=== PATIENT | male | born 1995 | race Caucasian/White ===

== ENCOUNTER 2018-09-16 13:14 | Emergency (ER) | payer BC, SELFPAY ==
[2018-09-16 13:15] VITALS: BP 139/78; PULSE 87; RESP 16; TEMP 36.6; O2SAT 100; BMI 23.1
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
--- NOTE | 2018-09-16 14:06 | DCINST.ED_ITS ---
ED Disposition - Plan for ED Patient: Disposition: Home or Assisted Living Instructions: ED Laceration Ext Sutr Stap Tape Referrals: [facility] Doctor,Out of [Primary Care Provider] - 7 Days for suture removal
[2018-09-16] MEDS: Diphth,Pertuss(Acell),Tet Vac 0.5 ML Vial IM (14:12)
== END 2018-09-16 15:40 | disposition home or self-care (01) ==
LOC: ED 14:22
PROVIDERS: Emergency Provider Emergency Medicine; Family Provider Family Medicine; PCP Family Medicine
DX: S51.812A Laceration without foreign body of left forearm, initial encounter (principal); W26.8XXA Contact with other sharp object(s), not elsewhere classified, initial encounter; Y93.9 Activity, unspecified; Y92.9 Unspecified place or not applicable
CPT/HCPCS: 12001; 90471; 90715; 99283

== ENCOUNTER 2024-12-25 20:00 | Inpatient (IN) | payer OTHER, SELFPAY ==
[2024-12-25 21:44] VITALS: BMI 24.5
[2024-12-25 22:00] VITALS: BP 122/70; PULSE 103; RESP 16; TEMP 37.2; O2SAT 97; BMI 25.2
[2024-12-25 22:39] VITALS: PULSE 103
[2024-12-25] MEDS: Senna/Docusate Sodium 1 Tablet PO (22:39)
[2024-12-25] MEDS: Polyethylene Glycol 3350 17 GM PACKET PO (22:40)
[2024-12-25 23:21] LABS: Mucous, Urine 0 SEEN /hpf (<or=2+)
[2024-12-25 23:32] LABS: Color, Urine Yellow (Yellow); Glucose, Dipstick Normal (Normal); Ketone-Dipstick Negative (Negative); Leukocyte Esterase-Dipstick Negative /ul (Negative); Nitrite-Dipstick Negative (Negative); Occult Blood-Urine 50 /ul (Negative); Protein-Dipstick 15 mg/dl (Negative); Specific Gravity, Urine 1.010 (1.002-1.030); Urine Bilirubin Dipstick Negative (Negative)
[2024-12-26 00:26] LABS: Red Blood Cells-Urine 10-25 SEEN /hpf (0-5); Squamous Epithelial Cells - UA 0-5 SEEN /hpf (0-5)
[2024-12-26 06:00] VITALS: BP 119/69; PULSE 104; RESP 16; TEMP 36.4; O2SAT 98
[2024-12-26 06:43] LABS: Hematocrit 29.9 % (40-54); Hemoglobin 9.8 g/dL (13.0-16.5); Immature Granulocytes Count 0.120 X10^3/uL (0.0-0.0); Mean Corp Hgb Conc 32.8 g/dL (32-36); Mean Corpuscular Volume 93.7 fL (80-94); Mean Platelet Vol. 8.4 fl (6.2-12.0); NRBC Flagged by Analyzer 0 % (0-5); Platelet Count 532 K/mm3 (150-450); RBC Distribution Width CV 13.6 % (11.6-14.6); RBC Distribution Width SD 46.5 fl (35.1-43.9); Red Blood Count 3.19 M/mm3 (4.6-6.2); White Blood Count 9.6 K/mm3 (4.4-11.0)
[2024-12-26 08:17] LABS: AST(SGOT) 54 U/L (<=37); Alanine Aminotransfer ALT/SGPT 73 U/L (<=46); Albumin, Serum 3.2 g/dL (3.5-5.0); Alkaline Phosphatase 82 U/L (40-129); Anion Gap 10 (5-15); BUN 14 mg/dL (4-19); BUN/Creat Ratio 18.6 RATIO (10-20); Calcium,Total 9.0 mg/dL (7.6-11.0); Carbon Dioxide 26.5 mmol/L (21.0-32.0); Chloride 103 mmol/L (98-108); Estimated Creatinine Clearance 146.00 ml/min (50-250); Globulin 3.2 g/dL (2.2-4.2); Glucose 93 mg/dL (70-99); Magnesium 2.5 mg/dL (1.5-2.2); Potassium 4.4 mmol/L (3.3-5.1)
[2024-12-26 08:34] VITALS: BP 103/60; BP 95/59; PULSE 133; PULSE 142
[2024-12-26] MEDS: Polyethylene Glycol 3350 17 GM PACKET PO (09:17)
[2024-12-26] MEDS: Senna/Docusate Sodium 1 Tablet PO (09:17)
[2024-12-26 10:00] VITALS: PULSE 133
--- NOTE | 2024-12-26 10:19 | HP.PCM_ITS ---
HPI - General General Date of Admission: 12/25/24 HPI Narrative DANICA GORDON, is a 29 M who presents [facility] Medical History no medical history Home Medications ?Medication ?Instructions ?Recorded ?Last Taken ?Type acetaminophen 325 mg tablet 325 mg PO Q6H Pain 5 12/25/24 17:25 History bacitracin zinc 500 unit-polymyxin 1 applic topical TI D Infection 12/25/24 12/25/24 12:30 History B 10,000 unit/gram topical ointment (Double Antibiotic (bacitrcn zn)) cyclobenzaprine 10 mg tablet 10 mg PO TID Muscle spasm s 12/25/24 12/25/24 21:20 History enoxaparin 40 mg/0.4 mL 40 mg subcut DAILY Anticoagu lant 12/25/24 Unknown History subcutaneous syringe gabapentin 300 mg capsule 300 mg PO TID pain 12/25/24 Unknown History ibuprofen 600 mg tablet (IBU) 600 mg PO Q6H Pain 12/25 Unknown History metoprolol tartrate 50 mg tablet 50 mg PO BID Heart ra te 12/25/24 12/25/24 12:30 History oxycodone 5 mg tablet 5 mg PO Q6H PRN pain 5 12/25/24 04:15 History polyethylene glycol 3350 17 17 g PO BID Constipation 0 12/25/24 12/25/24 08:15 History gram/dose oral powder (Purelax) sennosides 8.6 mg-docusate sodium 2 tab-cap PO DAILY C onstipation 12/25/24 Unknown History 50 mg tablet (Senna with Docusate Sodium) tamsulosin 0.4 mg capsule (Flomax) 0.4 mg PO QHS Urina ry retention 12/25/24 12/24/24 19:45 History Allergy/AdvReac Type Severity Reaction Status Date / Time No Known Allergies Allergy Verified 12/26/24 10:30 Family History no significant family his Surgical History no surgical history Social History Smoking Status: Never smoker Vital Signs Vital Signs Vital Signs: 12/25/24 22:00 12/25/24 22:00 12/25/24 22:39 Temperature 98.9 F Temperature Source Oral Pulse Rate 103 H 103 H 103 H Pulse Rate [Sitting (for 1 minute prior to obtaining)] Pulse Rate [Standing (for 1 minute prior to obtaining)] Respiratory Rate 16 16 Respiratory Effort Normal Non-Labored Respiratory Depth Normal Respiratory Pattern Normal Blood Pressure 122/70 H Blood Pressure [Sitting (for 1 minute prior to obtaining)] Blood Pressure [Standing (for 1 minute prior to obtaining)] Blood Pressure Mean 87 Blood Pressure Mean [Sitting (for 1 minute prior to obtaining)] Blood Pressure Mean [Standing (for 1 minute prior to obtaining)] Blood Pressure Source Monitor Blood Pressure Position Semi-Fowlers Blood Pressure Location Left Arm Pulse Ox 97 97 Oxygen Delivery Method Room Air Room Air 12/26/24 06:00 12/26/24 08:34 Temperature 97.6 F L Temperature Source Oral Pulse Rate 104 H Pulse Rate [Sitting (for 1 minute prior to obtaining)] 142 H Pulse Rate [Standing (for 1 minute prior to obtaining)] 133 H Respiratory Rate 16 Respiratory Effort Respiratory Depth Respiratory Pattern Blood Pressure 119/69 Blood Pressure [Sitting (for 1 minute prior to obtaining)] 103/60 Blood Pressure [Standing (for 1 minute prior to obtaining)] 95/59 L Blood Pressure Mean 85 Blood Pressure Mean [Sitting (for 1 minute prior to obtaining)] 74 Blood Pressure Mean [Standing (for 1 minute prior to obtaining)] 71 Blood Pressure Source Monitor Blood Pressure Position Semi-Fowlers Blood Pressure Location Left Arm Pulse Ox 98 Oxygen Delivery Method Room Air Weight Weight: 171 lb Body Mass Index (BMI) 25.2 Results Lab / Micro Data 12/26/24 06:16 12/26/24 06:16 Labs: Laboratory Results - last 24 hr 12/25/24 22:56: Urine Color Yellow, Urine Clarity Clear, Urine pH 7.0, Ur Specific [place] 1.010, Urine Protein 15 H, Urine Glucose (UA) Normal, Urine Ketones Negative, Urine Occult Blood 50 H, Urine Nitrite Negative, Urine Bilirubin Negative, Urine Urobilinogen Normal, Ur Leukocyte Esterase Negative, Urine RBC 10-25 SEEN, Urine WBC 0 SEEN, Ur Squamous Epith Cells 0-5 SEEN, Urine Bacteria 3+, Urine Mucus 0 SEEN 12/26/24 06:16: WBC 9.6, RBC 3.19 L, Hgb 9.8 L, Hct 29.9 L, MCV 93.7, MCH 30.7, MCHC 32.8, RDW Std Deviation 46.5 H, RDW Coeff of Dilcia 13.6, Plt Count 532 H, MPV 8.4, Immature Gran % (Auto) 1.200 H, Neut % (Auto) 67.1, Lymph % (Auto) 17.5 L, Ector % (Auto) 11.6 H, Eos % (Auto) 2.1, Baso % (Auto) 0.5, Absolute Neuts (auto) 6.5, Absolute Lymphs (auto) 1.68, Nucleated RBC % 0, Sodium 139, Potassium 4.4, Chloride 103, Carbon Dioxide 26.5, Anion Gap 10, BUN 14, Creatinine 0.76, Estim Creat Clear Calc 146.00, Est GFR (MDRD) Non-Af 126, BUN/Creatinine Ratio 18.6, Glucose 93, Calcium 9.0, Phosphorus 4.0, Magnesium 2.5 H, Total Bilirubin 0.68, AST 54 H, ALT 73 H, Alkaline Phosphatase 82, Total Protein 6.4, Albumin 3.2 L, Globulin 3.2, Albumin/Globulin Ratio 1.0 Assessment & Plan Assessment/Plan PLAN: Plan PLAN PT for gait stability OT for ADL's Analgesics as needed Bowel protocol Fall precautions Assess for Anxiety/Depression GI prophylaxis - [] DVT prophylaxis with [] Follow up with [] following DC from IP Rehab AM lab including CMP, CBC, Mag and Phos DC Gabapentin and Flexeril. Continue Motrin and Tylenol q8H Schedule Oxycodone 10 mg Q 8H and 5 mg Q4H PRN breakthrough pain 6-10 Discontinue Flomax DC metoprolol - he is orthostatic and HR went up to 133 with standing due to uncontrolled pain and dehydration. NS 1 liter bolus over an hour. He is increasing his fluid intake. Recheck a HH in the AM. Voiding trial .
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
[2024-12-26] MEDS: 0.9% Normal Saline (500mL Bag) 500 ML 999 ML IV (10:24)
[2024-12-26] MEDS: 0.9% Saline Lock 10 ML Syringe IV (10:28)
[2024-12-26 11:03] VITALS: BP 117/73; PULSE 99; RESP 18
[2024-12-26] MEDS: 0.9% Normal Saline (500mL Bag) 500 ML IV (11:15)
--- NOTE | 2024-12-26 11:37 | REHABEVAL_ITS ---
Admission Information Primary Diagnosis:: Debility secondary to SENIOR CARE/open left distal femur fracture Status Changes from Prescreening?: No changes Identified Actual Problem List:: Skin Intergrity, Pain, ALteration in Cmfrt, Bowel, Constipation, Mobility Impaired, Self Care Deficit, BP, Hypotension, Alteration/ Air Exchange, Fluid Change-Dehydration and Alteration-Leisure Activ. Potential Problem List:: DVT, Bleeding, Infection, UTI, Aspiration, Falls, Skin Integrity and Depression Risk of Complications DVT: LMWH and JUANITA Hose Bleeding: Monitor Lab Values, Nursing to Teach Precautions for anti-coagulation therapy., Wound, if applicable, to be assessed every shift. and Stroke patients assessed for lethargy or change in status. Infection: Clinical Staff to Monitor for S/S of infection: and S/S of infection include fever, redness, warmth, etc. Urinary Tract Infection: Monitor for frequency, burning, discomfort, or incontinence. and Nursing will obtain urine sample for urinalysis and C&S when ordered. Aspiration: Clinical staff will monitor for coughing, drooling, congestion., Speech will evaluate swallowing and dsyphasia. and Nursing will monitor patient swallowing during meals. Falls: Patient will be evaluated for Fall Precautions and Patient will be placed on Fall Precautions as indicated per protocol. Skin Breakdown: Nursing will assess skin daily using assessment tool. and Nursing will place on Skin Breakdown Precautions as indicated. Pain: Clinical staff will assess patient's pain level per protocol., Medications will be given, if needed, and the pain level reassessed. and Other methods: Massage, distraction, decrease stimulus, etc. used PRN. Plan of Care Patient requires physician specializing in physical medicine and rehab oversight to provide close medical supervision of rehab issues including: Pain Management, Sleep Problems, Bowel and Bladder, Medical and co-morbidity Management, DVT prophylaxis, Rehabilitation Leadership and Coordination of treatment team Patient needs Physical Therapy: For a minimum of 1 hour and At least 5 out of 7 days Patient needs Physical Therapy to improve:: Mobility, Strengthening, Transfers, Stretching, ROM, Endurance, Stairs, Gait and Balance Patient needs Occupational Therapy: For a minimum of 1 hour and At least 5 out of 7 days Patient needs Occupational Therapy to improve ADL's incl.: Eating, Grooming, Bathing, Dressing, Toileting, Toilet transfers, Community Reintegration, Higher functioning activities, Household tasks, Adaptive Equipment, Splinting and Other activities as determined Patient requires 24/7 Rehabilitation Nursing for: Pain Issues, Identifying and preventing risk factors, Monitoring and reporting current medical conditions, Assisting with ambulation, transfer, and all ADL's, Teaching patients about disease process and medications, Family teaching, Providing safe environment, Bowel and Bladder Issues, Skin integrity and Medication Management Patient needs Academic Support Director/ Case Management for: Discharge Planning, Arranging Home Equipment or Services and Family Interventions Patient needs Dietary and Nutrition Services for: Adequate Nutrition, Nutritional Supplements and Nutritional Education Goals Goals Patient will remain: free from falls Patient will perform eating at: MOD I level of assist. Patient will perform bed mobility at: MOD I level of assist. Patient will complete transfers from bed to chair at: MOD I level of assist. Patient will ambulate: - (50 feet with a wheeled walker while maintaining nonweightbearing on the left lower extremity on various surfaces at modified) Patient will complete upper body dressing at: MOD I level of assist. Patient will complete lower body dressing at: MOD I level of assist. (With adaptive equipment as needed for increased independence with self-care) Patient will complete toilet transfer at: MOD I level of assist. Patient will complete toileting at: MOD I level of assist. Patient will perform bathing at: MOD I level of assist. (Using adaptive equipment for lower body bathing as needed.) Patient will perform Tub/Shower transfer at: - (Supervision using DME as needed. ) Patient will complete grooming at: MOD I level of assist. Patient will complete home management skills at: MOD I level of assist. Patient will achieve: - (3 steps with a wheeled walker at standby assist to allow access to his home.) Patient will have pain level of: of 3 or less Patient's skin will: remain intact Patient will receive: adequate nutrition. Discharge Planning Pt Prognosis for Sig. Practical Improv. w/in Reasonable Time: Good Estimated Length of stay (days): 14 Anticipated D/C Destination: Home w/ family or friends Was Preadmission Assessment Accurate?: Yes
[2024-12-26] MEDS: Magnesium Citrate 300 ML PO (12:11)
[2024-12-26 18:00] VITALS: BP 122/75; PULSE 99; RESP 12; TEMP 36.9; O2SAT 97
--- NOTE | 2024-12-26 18:37 | NURSING ---
Per Dr. Andrea ABD applied to incision on knee, miguel clean dry and intact. x4 Bandaids applied to proximal and distal incisions, miguel clean dry and intact. Left lateral knee surgical dressing remains intact. Proximal lateral knee incision covered with a 2x2. SOL wrap to be worn during the day. JUANITA to right leg.
[2024-12-26] MEDS: Senna/Docusate Sodium 1 Tablet 2 TABLET PO (21:45)
[2024-12-26 22:00] VITALS: PULSE 106
[2024-12-27 05:58] VITALS: BP 130/77; PULSE 121; RESP 15; TEMP 36.6; O2SAT 100
[2024-12-27 06:00] VITALS: BMI 24.3
[2024-12-27 07:25] LABS: Hematocrit 28.2 % (40-54); Hemoglobin 9.3 g/dL (13.0-16.5)
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
[2024-12-27 09:45] VITALS: BP 118/67; BP 127/88; BP 134/89; PULSE 105; PULSE 121; PULSE 149
[2024-12-27 18:00] VITALS: BP 119/74; PULSE 111; RESP 16; TEMP 36.4; O2SAT 99
[2024-12-27 21:15] VITALS: PULSE 111; RESP 16
[2024-12-27] MEDS: 0.9% Saline Lock 10 ML Syringe IV (22:37)
[2024-12-28 06:00] VITALS: BP 127/78; PULSE 116; RESP 17; TEMP 37.4
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
--- NOTE | 2024-12-28 14:45 | NURSING ---
Mepilex changed by assistant shift supervisor to left lateral knee, OT notified this nurse that dressing had come loose again. Per verbal communication with Dr. Leung, okay to leave incision open to air.
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
[2024-12-28 18:00] VITALS: BP 128/79; PULSE 98; RESP 16; TEMP 37.2; O2SAT 98
[2024-12-28 22:00] VITALS: PULSE 98; RESP 16; O2SAT 98
[2024-12-28] MEDS: 0.9% Saline Lock 10 ML Syringe IV (22:14)
[2024-12-29 06:00] VITALS: BP 117/80; PULSE 94; RESP 16; TEMP 36.3; O2SAT 97
--- NOTE | 2024-12-29 08:56 | PCM.DC ---
Documented by User: KIRSTEN Sinclair 12/29/24 09:58 Discharge Instructions Diet Discharge Diet: No restrictions DC O2, CPAP, BIPAP needs Home O2 Discharge instructions: No Dressing / Incision Discharge Activity: May Not Drive and May Shower (no tub ) Weight Bearing Status: No weight bearing (Left Lower extremity ) Keep extremity elevated above heart level: Left Leg Dressing / Incision Call your doctor if your incision/area has: Continuous Slow Oozing, Sudden Increased Bleeding, Increased Pain/ Swelling, Increased Redness, Foul Smelling Discharge and Swelling at the incision site Call your doctor if you observe: Fever of 101 or Higher, Numbness or Tingling, Inability to have a bowel movement, Shortness of breath and Uncontrolled pain Cleanse incision/area with: Soap & Water Follow Up Care Please Follow Up With: uAgust Blair MD Test Results: Test results from this visit will be discussed in further detail at your follow-up appointment, if applicable. Discharge Plan Admission Admit Date/Time: 12/25/24 20:00 Primary Reason for Your Visit: SENIOR CARE- debility following ORIF LLE Attending Provider: Beth Leung Primary Care Provider: Igor Monique Instructions Additional Instructions / Restrictions: 1. If you have uncontrolled pain, it will set back your recovery. 2. Do your exercises every day. It will hurt but, if you don't do the exercises you may not get full range of motion back at the knee. That's why we take meds.....so we can tolerate the pain and continue to move and do therapy. ICE is your friend. It is good to ice the knee after exercise.......it decreases inflammation and helps with pain control. 3. May take Oxycodone up to 3 times a day. Remember to take Tylenol and Ibuprofen 3 times a day......these are both pain relievers and using them as scheduled helps to cut down on the need for narcotics to control pain. You will also be taking a muscle relaxer called tizanidine 3 X's a day. You can start decreasing the tizanidine as long as you are not having muscle spasms. 4. Contact your provider if you experience fever > 100.4, oozing at the surgical site, odor from surgical site, redness with heat or uncontrolled pain unrelieved by scheduled pain medications. 5. You have an appt scheduled with a route delivery service driver, Dr. Freeman. Your heart rate is now in the 90's off Metoprolol and you are doing well. I suspect the high heart rates were related to a combination of inadequate pain relief and dehydration rather than any problem with the heart. You may want to cancel this appt unless, you feel you would like to see the route delivery service driver. 6. If you have any questions after you leave rehab please do not hesitate to call me. OFFICE: [phone] CELL: [phone] NURSES STATION ON REHAB: [phone] Discharge Orders/Prescriptions Prescriptions: New acetaminophen 500 mg Tablet 1,000 mg PO Q8 7 Days Qty: 42 0RF Rx Instructions: please take as scheduled 3 times a day ibuprofen 600 mg Tablet 600 mg PO TID 7 Days Qty: 21 0RF Rx Instructions: please take as scheduled three times a day Continued sennosides-docusate sodium [Senna with Docusate Sodium] 8.6-50 mg tablet 2 tab-cap PO DAILY 7 Days Qty: 14 0RF Rx Instructions: take while taking opioids or experiencing constipation Changed oxycodone 5 mg tablet 5 mg PO 3XD PRN (Reason: pain) 7 Days Qty: 21 0RF Rx Instructions: Give Oxycodone 5mg for pain level 1-6; Oxycodone 10mg for pain level >6 Discontinued acetaminophen 325 mg tablet 325 mg PO Q6H bacitracin zinc-polymyxin B [Double Antibiotic (b.tracn Zn)] 500-10,000 unit/gram ointment 1 applic topical TID Rx Instructions: Apply to affected area three times a day x 7 days cyclobenzaprine 10 mg tablet 10 mg PO TID enoxaparin 40 mg/0.4 mL syringe 40 mg subcut DAILY gabapentin 300 mg capsule 300 mg PO TID Rx Instructions: Every 8 hours x 14 days. ibuprofen [IBU] 600 mg tablet 600 mg PO Q6H Rx Instructions: Every 6 hours x 7 days metoprolol tartrate 50 mg tablet 50 mg PO BID tamsulosin [Flomax] 0.4 mg capsule 0.4 mg PO QHS No Action polyethylene glycol 3350 [Purelax] 17 gram/dose powder 17 g PO BID Referrals / Follow Up: [facility] Francois-Opthalmology [Other] - 01/05/25 11:15 am Ana Paula Freeman-Cardiology [Other] - 02/08/25 3:30 pm August Blair MD [Non-Staff] - 01/04/25 10:15 am Igor Monique MD [Primary Care Provider] - 01/18/25 1:00 pm Disposition Disposition (needs filled in before D/C Order can be placed): Home, Self Care Documented by User: Dr. Beth Leung DO 12/29/24 16:42 Discharge Instructions Dressing / Incision Discharge Activity: Use Walker (use a wheelchair for longer distances. ) Dressing / Incision Call your doctor if you observe: Chest pain, Increased palpitations (irregular heartbeat) and Calf discomfort Suture Line Care: Avoid Pulling/Pushing and Avoid Pinching/Bending Additional Dressing/Incision Instructions:: OK to leave the incisions open to air. Follow Up Care When: appts are listed later in this document. Pending Tests Upon Discharge: none Discharge Plan Admission Admit Date/Time: 12/25/24 20:00 Primary Reason for Your Visit: SENIOR CARE- debility following ORIF LLE Attending Provider: Beth Leung Primary Care Provider: Igor Monique Instructions Additional Instructions / Restrictions: 1. If you have uncontrolled pain, it will set back your recovery. 2. Do your exercises every day. It will hurt but, if you don't do the exercises you may not get full range of motion back at the knee. That's why we take meds.....so we can tolerate the pain and continue to move and do therapy. ICE is your friend. It is good to ice the knee after exercise.......it decreases inflammation and helps with pain control. 3. May take Oxycodone up to 3 times a day. Remember to take Tylenol and Ibuprofen 3 times a day......these are both pain relievers and using them as scheduled helps to cut down on the need for narcotics to control pain. You will also be taking a muscle relaxer called tizanidine 3 X's a day. You can start decreasing the tizanidine as long as you are not having muscle spasms. 4. Contact your provider if you experience fever > 100.4, oozing at the surgical site, odor from surgical site, redness with heat or uncontrolled pain unrelieved by scheduled pain medications. 5. You have an appt scheduled with a route delivery service driver, Dr. Freeman. Your heart rate is now in the 90's off Metoprolol and you are doing well. I suspect the high heart rates were related to a combination of inadequate pain relief and dehydration rather than any problem with the heart. You may want to cancel this appt unless, you feel you would like to see the route delivery service driver. 6. If you have any questions after you leave rehab please do not hesitate to call me. OFFICE: [phone] CELL: [phone] NURSES STATION ON REHAB: [phone] Discharge Orders/Prescriptions Prescriptions: New acetaminophen 500 mg Tablet 1,000 mg PO Q8 7 Days Qty: 42 0RF Rx Instructions: please take as scheduled 3 times a day ibuprofen 600 mg Tablet 600 mg PO TID 7 Days Qty: 21 0RF Rx Instructions: please take as scheduled three times a day Continued sennosides-docusate sodium [Senna with Docusate Sodium] 8.6-50 mg tablet 2 tab-cap PO DAILY 7 Days Qty: 14 0RF Rx Instructions: take while taking opioids or experiencing constipation Changed oxycodone 5 mg tablet 5 mg PO 3XD PRN (Reason: pain) 7 Days Qty: 21 0RF Rx Instructions: Give Oxycodone 5mg for pain level 1-6; Oxycodone 10mg for pain level >6 Discontinued acetaminophen 325 mg tablet 325 mg PO Q6H bacitracin zinc-polymyxin B [Double Antibiotic (b.tracn Zn)] 500-10,000 unit/gram ointment 1 applic topical TID Rx Instructions: Apply to affected area three times a day x 7 days cyclobenzaprine 10 mg tablet 10 mg PO TID enoxaparin 40 mg/0.4 mL syringe 40 mg subcut DAILY gabapentin 300 mg capsule 300 mg PO TID Rx Instructions: Every 8 hours x 14 days. ibuprofen [IBU] 600 mg tablet 600 mg PO Q6H Rx Instructions: Every 6 hours x 7 days metoprolol tartrate 50 mg tablet 50 mg PO BID tamsulosin [Flomax] 0.4 mg capsule 0.4 mg PO QHS No Action polyethylene glycol 3350 [Purelax] 17 gram/dose powder 17 g PO BID Referrals / Follow Up: [facility]-Opthalmology [Other] - 01/05/25 11:15 am Ana [facility]-Cardiology [Other] - 02/08/25 3:30 pm August Blair MD [Non-Staff] - 01/04/25 10:15 am Igor Monique MD [Primary Care Provider] - 01/18/25 1:00 pm Disposition Disposition (needs filled in before D/C Order can be placed): Home, Self Care
--- NOTE | 2024-12-29 09:12 | EX.DISCHREH ---
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 subcut DAILY gabapentin 300 mg capsule 300 mg PO TID Rx Instructions: Every 8 hours x 14 days. ibuprofen [IBU] 600 mg tablet 600 mg PO Q6H Rx Instructions: Every 6 hours x 7 days metoprolol tartrate 50 mg tablet 50 mg PO BID tamsulosin [Flomax] 0.4 mg capsule 0.4 mg PO QHS No Action polyethylene glycol 3350 [Purelax] 17 gram/dose powder 17 g PO BID Referrals / Follow Up: Garfield Francois-Opthalmology [Other] - 01/05/25 11:15 am Ana Paula Freeman-Cardiology [Other] - 02/08/25 3:30 pm August Blair MD [Non-Staff] - 01/04/25 10:15 am Igor Monique MD [Primary Care Provider] - 01/18/25 1:00 pm Disposition Disposition (needs filled in before D/C Order can be placed): Home, Self Care
[2024-12-29] MEDS: 0.9% Saline Lock 10 ML Syringe IV ×2 (09:14→22:13)
[2024-12-29 18:00] VITALS: BP 128/79; PULSE 83; RESP 16; TEMP 37.2; O2SAT 99
[2024-12-29 21:00] VITALS: PULSE 83; RESP 16; O2SAT 99
[2024-12-30 06:00] VITALS: BP 144/89; PULSE 98; RESP 16; TEMP 36.8; O2SAT 99
[2024-12-30 18:00] VITALS: BP 136/74; PULSE 93; RESP 16; TEMP 36.7; O2SAT 99
[2024-12-31 06:00] VITALS: BP 127/87; PULSE 105; RESP 18; TEMP 37; O2SAT 98
[2024-12-31 12:10] VITALS: BP 121/84; PULSE 84; RESP 16; TEMP 36.8; O2SAT 100
== END 2024-12-31 12:15 | disposition home or self-care (01) | DRG 560 ==
PROVIDERS: Admitting Provider Internal Medicine; PCP Family Medicine; Visit Provider Internal Medicine
DX: S72.402E Unspecified fracture of lower end of left femur, subsequent encounter for open fracture type I or II with routine healing (principal); D62 Acute posthemorrhagic anemia; E86.0 Dehydration; I95.1 Orthostatic hypotension; K59.03 Drug induced constipation; D75.838 Other thrombocytosis; S83.004D Unspecified dislocation of right patella, subsequent encounter; R00.0 Tachycardia, unspecified; V29.99XD Rider (driver) (passenger) of other motorcycle injured in unspecified traffic accident, subsequent encounter; S27.0XXD Traumatic pneumothorax, subsequent encounter; S27.321D Contusion of lung, unilateral, subsequent encounter; S05.11XD Contusion of eyeball and orbital tissues, right eye, subsequent encounter
CPT/HCPCS: 36415; 80053; 81001; 83735; 84100; 84443; 85014; 85018; 85025; 87086; 97110; 97116; 97162; 97166; 97530; 97535; A4216